=== PATIENT | female | born 1975 | race Asian ===

== ENCOUNTER 2021-09-06 08:45 | Emergency (ER) | payer BC ==
[~2021-09-06] VITALS: Ht 160 cm; Wt 63.5 kg
[~2021-09-06 08:45] MED LIST: SUMA100T PO; YAZMIN
[2021-09-06 08:56] VITALS: BP_SYST 164
[2021-09-06] MEDS ORDERED: FAMOTIDINE 20 MG TABLET PO ONE (09:30)
[2021-09-06] MEDS ORDERED: MAG HYDROX/AL HYDROX/SIMETH 30 ML, LIDOCAINE VISCOUS 2% 15ML (PO) 15 ML, DICYCLOMINE HC... PO ONE ×3 (09:30)
[2021-09-06 09:54] LABS: BILIRUBIN,URINE NEGATIVE (NEGATIVE); CLARITY/URINE SL CLOUDY (CLEAR); COLOR,URINE YELLOW (YELLOW); GLUCOSE,URINE NEGATIVE (NEGATIVE); KETONES,URINE 1+ (NEGATIVE); LEUKOCYTE ESTERASE ,URINE 1+ (NEGATIVE); NITRITE, URINE NEGATIVE (NEGATIVE); PROTEIN URINE NEGATIVE (NEGATIVE); UROBILINOGEN,URINE 0.2 (0.2-1.0)
[2021-09-06 10:00] LABS: BLOOD, URINE TRACE (NEGATIVE)
[2021-09-06 10:21] LABS: BASOPHILS # (AUTO) 0.1 K/uL (0.0-0.2); BASOPHILS % (AUTO) 1.2 % (0.0-2.0); EOSINOPHILS # (AUTO) 0.3 K/uL (0.0-0.4); EOSINOPHILS % (AUTO) 3.4 % (0.0-4.0); HEMOGLOBIN 13.1 g/dL (12.0-16.0); LYMPHOCYTES # (AUTO) 0.9 K/uL (1.0-5.5); LYMPHOCYTES % (AUTO) 11.2 % (20.5-51.5); MEAN CORPUSCULAR HEMOGLOBIN 29 pg (27-31); MEAN CORPUSCULAR HGB CONC 33 % (32-36); MEAN CORPUSCULAR VOLUME 88 fL (79.0-98.0); MONOCYTES # (AUTO) 0.2 K/uL (0.0-1.0); MONOCYTES % (AUTO) 2.3 % (1.7-9.3); NEUTROPHILS # (AUTO) 6.9 K/uL (1.8-7.7); NEUTROPHILS % (AUTO) 81.9 % (40.0-70.0); PLATELET COUNT (AUTO) 172 K/uL (130-430); RED BLOOD CELL COUNT(AUTO) 4.55 MIL/uL (4.2-6.2); RED CELL DISTRIBUTION WIDTH 13.3 % (9.0-15.0); WHITE BLOOD COUNT (AUTO) 8.5 K/uL (4.8-10.8)
[2021-09-06 10:23] LABS: BACTERIA,URINE MODERATE /HPF (None Seen)
[2021-09-06 10:23] LABS: CALCIUM 8.8 mg/dL (8.4-11.0); CREATININE 0.79 mg/dL (0.55-1.30); POTASSIUM 3.5 mmol/L (3.5-5.1)
[2021-09-06 10:24] LABS: MUCUS,URINE 1+ /LPF (None Seen); URINE AMORPHOUS PHOSPHATES 2+ /HPF (None Seen)
[2021-09-06 10:33] LABS: ALBUMIN 3.8 g/dL (3.4-4.8); TOTAL BILIRUBIN 0.3 mg/dL (0.0-1.0)
[2021-09-06] MEDS ORDERED: MORPHINE 4 MG INJ. 4 MG/ML VIAL IM ONE (11:15)
[2021-09-06] MEDS ORDERED: ONDA-8 TL (12:06)
[2021-09-06] MEDS ORDERED: DICY10CA13 PO (12:06)
[2021-09-06] MEDS ORDERED: ANT30 PO (12:06)
[2021-09-06] MEDS ORDERED: PRO40 PO (12:06)
[2021-09-06 13:15] VITALS: BP_SYST 144
== END 2021-09-06 12:40 | disposition home or self-care (01) ==
LOC: SED 08:45
DX: K29.50 Unspecified chronic gastritis without bleeding (principal); K21.9 Gastro-esophageal reflux disease without esophagitis; Z79.899 Other long term (current) drug therapy
CPT/HCPCS: 36415; 74018; 80053; 81000; 81025; 83690; 85025; 87086; 96372; 99284; J2001; J2270